=== PATIENT | female | born 1955 | race Caucasian/White ===

== ENCOUNTER 2017-02-18 16:18 | Emergency (ER) | payer MEDICARE, BC ==
[~2017-02-18 16:18] MED LIST: ATIVAN0.5 MG PO; BACTRIM DS TABL1 TAB PO; FOLIC ACID1 MG PO; KEFLEX PO; LATUDA20 MG PO; LITHIUM PO; LYRICA PO; NEURONTIN600 MG PO; PROZAC PO; RESTORIL15 MG PO; SEROQUEL XR150 MG PO; VICODIN PO; ZONEGRAN100 MG PO; [UNRECOGNIZED DRUG - OTHER]
== END 2017-02-18 16:57 | disposition home or self-care (01) ==
LOC: SED 16:18
DX: S51.801A Unspecified open wound of right forearm, initial encounter (principal); Z23 Encounter for immunization; F31.9 Bipolar disorder, unspecified; F41.9 Anxiety disorder, unspecified; W18.00XA Striking against unspecified object with subsequent fall, initial encounter; Y92.009 Unspecified place in unspecified non-institutional (private) residence as the place of occurrence of the external cause
CPT/HCPCS: 90471; 90715; 99283

== ENCOUNTER 2017-04-21 14:40 | Emergency (ER) | payer MEDICARE, BC, OTHER ==
--- NOTE | ~2017-04-21 | EKG ---
PATIENT: EFRAIN CURRAN UNIT #: [id number] Ventricular Rate: 92 BPM Atrial Rate: 92 BPM P-R Interval: 162 ms QRS Duration: 80 ms Q-T Interval: 384 ms QTC Calculation(Bezet): 474 ms P [place]: -20 degrees Calculated R [place]: 17 degrees Calculated T [place]: 18 degrees Diagnosis Line: Normal sinus rhythm Diagnosis Line: Low voltage QRS Diagnosis Line: Borderline ECG Diagnosis Line: No previous ECGs available Diagnosis Line: Confirmed by JUANITA TOUSSAINT MD ([id number]) on Diagnosis Line: 04/25/2017 3:22:12 PM INTERPRETING MD: NORBERT SMITH
--- NOTE | ~2017-04-21 | CT71 ---
[facility] A Service [facility] RADIOLOGY TEXT RESULTS PATIENT: EFRAIN CURRAN LOCATION: SED : 59 UNIT #: [id number] AGE: [address]: Eliecer Miller MD SEX: F ORDER DR: [id number] [place] [id number] E MR#: [id number] Acc #: [id number] NAME: EFRAIN CURRAN. : 1955 SEX: F STUDY DATE/TIME: 04/21/2017 15:58 UNIT: SED ROOM: STUDY DESCRIPTION: CT Head Wo Contrast Attending Physician: Eliecer Miller M.D. Referring Physician: Eliecer Miller M.D. Ordering Physician: Eliecer Miller M.D. Primary Care Physician: Andrez Mares M.D. MEDICAL IMAGING REPORT This report is preliminary unless electronic signature is present. EXAM CT head without contrast 04/21/2017 HISTORY 61-year-old female with tremors and weakness for several days. COMPARISON CT head 08/31/2015 TECHNIQUE Routine unenhanced axial images performed through the brain. This CT exam was performed with one or more of the following radiation dose reduction techniques: automatic control, adjustment of mA and/or kV according to patient size, and iterative reconstruction. FINDINGS Examination mildly limited by motion. No hemorrhage, acute infarction, mass lesion, or abnormal extraaxial fluid collection. No midline shift or focal mass effect. Ventricular system normal in size configuration. No acute bony abnormality. Visualized paranasal sinuses and mastoid air cells are clear. IMPRESSION No acute intracranial abnormality Dictated by... Koko Galvan M.D. THIS IS AN ELECTRONICALLY VERIFIED REPORT Koko Galvan M.D. at 04/25/2017 8:01 AM SENG/maggi [facility] A Service [facility] RADIOLOGY TEXT RESULTS PATIENT: EFRAIN CURRAN LOCATION: SED : 59 UNIT #: [id number] AGE: [address]: Eliecer Miller MD SEX: F ORDER DR: TD: 04/21/2017 22:07 JOB #: [id number] MEDICAL IMAGING REPORT Page 1 of 1
[2017-04-21 15:52] LABS: BASOPHIL# 0.1 X10e3 (0-0.3); BASOPHIL% 0.8 % (0-2.5); EOSINOPHIL# 0.1 X10e3 (0-0.7); EOSINOPHIL% 1.3 % (0.0-7.0); HEMATOCRIT 35.7 % (35.0-45.0); LYMPHOCYTE# 2.1 X10e3 (1.0-3.5); MEAN CELL VOLUME 91.2 FL (83-96); MEAN CORPUSCULAR HEMOGLOBIN 30.7 PG (28-34); MEAN CORPUSCULAR HGB CONC 33.6 g/dL (30-36); MEAN PLATELET VOLUME 7.7 FL (6.5-11.5); MONOCYTE# 0.9 X10e3 (0-1.0); MONOCYTE% 7.6 % (3.0-12.0); NEUTROPHIL# 8.3 X10e3 (1.5-7.1); NEUTROPHIL% 72.3 % (40-75); PLATELET COUNT 296 X10e3 (140-420); RED BLOOD COUNT 3.92 X10e (3.90-5.30); RED CELL DISTRIBUTION WIDTH 15.1 % (11.0-15.5); WHITE BLOOD COUNT 11.4 X10e3 (4.0-10.5)
[2017-04-21 15:53] LABS: DIFF IND NO
[2017-04-21 16:07] LABS: POC - CKMB 1.1 ng/mL (0.0-7.9); POC - TROPONIN <0.05 ng/mL (<=0.05)
[2017-04-21 16:08] LABS: CALCIUM SERUM 8.8 mg/dL (8.4-10.2); CREATININE SERUM 1.3 mg/dL (0.6-1.4); GLOM FILT RATE Estimated 44.9 mL/min (>60); POTASSIUM 3.9 mmol/L (3.5-5.1)
[2017-04-21 17:16] LABS: URINE SOURCE CLEAN CATCH
[2017-04-21 17:18] LABS: URINE APPEARANCE CLEAR; URINE BILIRUBIN NEG (NEG); URINE BLOOD 2+ (NEG); URINE COLOR YELLOW; URINE GLUCOSE NEG (NORM); URINE KETONE NEG (NEG); URINE LEUKOCYTE ESTERASE NEG (NEG); URINE NITRATE NEG (NEG); URINE PROTEIN NEG (NEG); URINE SPECIFIC GRAVITY <=1.005 (1.003-1.035); URINE UROBILINOGEN 0.2 MG/DL (NORM)
[2017-04-21 17:20] LABS: MICRO INDICATED? YES
[2017-04-21 17:24] LABS: CULTURE INDICATED? YES; URINE BACTERIA 1+ (NEG); URINE GRANULAR CAST 0-2 /[HPF]; URINE HYALINE CAST 0-2 /[HPF]; URINE SQUAMOUS EPITHELIAL CELL FEW /[HPF]
== END 2017-04-21 17:47 | disposition home or self-care (01) ==
LOC: SED 14:40
PROVIDERS: Emergency Medicine
DX: R20.2 Paresthesia of skin (principal); R42 Dizziness and giddiness; F41.9 Anxiety disorder, unspecified; F31.9 Bipolar disorder, unspecified; Z90.49 Acquired absence of other specified parts of digestive tract; Z90.710 Acquired absence of both cervix and uterus; Z79.899 Other long term (current) drug therapy
CPT/HCPCS: 36415; 70450; 80048; 81003; 82553; 84484; 85025; 87086; 93005; 99284

== ENCOUNTER 2017-05-12 09:45 | Emergency (ER) | payer MEDICARE, BC, OTHER ==
--- NOTE | ~2017-05-12 | CR253 ---
[facility]. [facility] A Service of [facility] & [facility] RADIOLOGY TEXT RESULTS PATIENT: EFRAIN CURRAN LOCATION: SED : 59 UNIT #: [id number] AGE: [address]: Jason Burgos MD SEX: F ORDER DR: [id number] [place] [id number] E MR#: [id number] Acc #: [id number] NAME: EFRAIN CURRAN. : 1955 SEX: F STUDY DATE/TIME: 05/12/2017 10:31 UNIT: SED ROOM: STUDY DESCRIPTION: CR Tibia and Fibula 2 Views Rt Attending Physician: Jason Burgos M.D. Ordering Physician: Jason Burgos M.D. Primary Care Physician: Andrez Mares M.D. MEDICAL IMAGING REPORT This report is preliminary unless electronic signature is present. EXAM Right tibia and fibula 05/12/17 1031 hours. HISTORY Patient slipped and fell getting out of shower this morning. Lower leg pain. FINDINGS AP and lateral views of the tibia and fibula were performed. No acute fracture is demonstrated. There is soft tissue swelling over the distal fibula with oblique fracture of the distal fibula demonstrated on today's ankle film but not readily seen on these images. IMPRESSION Lateral soft tissue swelling of the distal fibula. The patient does have an acute fracture of the distal fibula better seen on the ankle film today. Tibia is intact. Dictated by... Adrianne Major M.D. THIS IS AN ELECTRONICALLY VERIFIED REPORT Adrianne Major M.D. at 05/12/2017 4:01 PM JI/otilia TD: 05/12/2017 12:48 JOB #: [id number] MEDICAL IMAGING REPORT Page 1 of 1
--- NOTE | ~2017-05-12 | CR151 ---
[facility]. [facility] A Service of [facility] & [facility] RADIOLOGY TEXT RESULTS PATIENT: EFRAIN CURRAN LOCATION: SED : 59 UNIT #: [id number] AGE: [address]: Jason Burgos MD SEX: F ORDER DR: [id number] [place] [id number] E MR#: [id number] Acc #: [id number] NAME: EFRAIN CURRAN : 1955 SEX: F STUDY DATE/TIME: 05/12/2017 10:31 UNIT: SED ROOM: STUDY DESCRIPTION: CR Hip Min 2 Views Rt Attending Physician: Jason Burgos M.D. Ordering Physician: Jason Burgos M.D. Primary Care Physician: Andrez Mares M.D. MEDICAL IMAGING REPORT This report is preliminary unless electronic signature is present. EXAM Right hip 3 views 05/12/17 1031 hours. HISTORY Patient slipped and fell while getting out of the shower this morning. Hip pain and leg pain. COMPARISON 03/20/14 FINDINGS AP pelvis, AP and frog lateral views of the right hip demonstrate normal bone density. There is no pelvic or hip fracture seen. IMPRESSION No pelvic or hip fracture. Dictated by... Adrianne Major M.D. THIS IS AN ELECTRONICALLY VERIFIED REPORT Adrianne Major M.D. at 05/12/2017 4:01 PM JI/otilia TD: 05/12/2017 12:49 JOB #: [id number] MEDICAL IMAGING REPORT Page 1 of 1
--- NOTE | ~2017-05-12 | CR107 ---
[facility] A Service of [facility] & [facility] & [facility] RADIOLOGY TEXT RESULTS PATIENT: EFRAIN CURRAN LOCATION: SED : 59 UNIT #: [id number] AGE: [address]: Jason Burgos MD SEX: F ORDER DR: [id number] [place] [id number] E MR#: [id number] Acc #: [id number] NAME: EFRAIN CURRAN. : 1955 SEX: F STUDY DATE/TIME: 05/12/2017 10:31 UNIT: SED ROOM: STUDY DESCRIPTION: CR Femur 2 Views Rt Attending Physician: Jason Burgos M.D. Ordering Physician: Jason Burgos M.D. Primary Care Physician: Andrez Mares M.D. MEDICAL IMAGING REPORT This report is preliminary unless electronic signature is present. EXAM Right femur 2 views 05/12/17 1031 hours. HISTORY Patient slipped and fell while getting out of the shower this morning. Right leg pain. COMPARISON None. FINDINGS AP and lateral views of the femur demonstrate no fracture. IMPRESSION Negative right femur. Dictated by... Adrianne Major M.D. THIS IS AN ELECTRONICALLY VERIFIED REPORT Adrianne Major M.D. at 05/12/2017 4:01 PM JI/otilia TD: 05/12/2017 12:43 JOB #: [id number] MEDICAL IMAGING REPORT Page 1 of 1
--- NOTE | ~2017-05-12 | CR127 ---
[facility] A Service of [facility] & [facility] RADIOLOGY TEXT RESULTS PATIENT: EFRAIN CURRAN LOCATION: SED : 59 UNIT #: [id number] AGE: [address]: Jason Burgos MD SEX: F ORDER DR: [id number] [place] [id number] E MR#: [id number] Acc #: [id number] NAME: EFRAIN CURRAN. : 1955 SEX: F STUDY DATE/TIME: 05/12/2017 10:31 UNIT: SED ROOM: STUDY DESCRIPTION: CR Foot Complete Min 3 View Rt Attending Physician: Jason Burgos M.D. Ordering Physician: Jason Burgos M.D. Primary Care Physician: Andrez Mares M.D. MEDICAL IMAGING REPORT This report is preliminary unless electronic signature is present. EXAM Right foot 3 views 05/12/17 1031 hours. HISTORY Patient slipped and fell getting out of shower today. Right foot and ankle pain. COMPARISON None. FINDINGS AP, lateral and oblique views demonstrate no soft tissue swelling. The bone density is normal. There is no fracture or dislocation. There is a moderate sized plantar calcaneal spur. IMPRESSION Negative right foot. Dictated by... Adrianne Major M.D. THIS IS AN ELECTRONICALLY VERIFIED REPORT Adrianne Major M.D. at 05/12/2017 4:01 PM JI/otilia TD: 05/12/2017 12:45 JOB #: [id number] MEDICAL IMAGING REPORT Page 1 of 1
--- NOTE | ~2017-05-12 | CR21 ---
[facility] A Service of [facility] & [facility] RADIOLOGY TEXT RESULTS PATIENT: EFRAIN CURRAN LOCATION: SED : 59 UNIT #: [id number] AGE: [address]: Jason Burgos MD SEX: F ORDER DR: [id number] [place] [id number] E MR#: [id number] Acc #: [id number] NAME: EFRAIN CURRAN : 1955 SEX: F STUDY DATE/TIME: 05/12/2017 UNIT: SED ROOM: STUDY DESCRIPTION: CR Ankle Min 3 Views Rt Attending Physician: Jason Burgos M.D. Ordering Physician: Jason Burgos M.D. Primary Care Physician: Andrez Mares M.D. MEDICAL IMAGING REPORT This report is preliminary unless electronic signature is present. EXAM Right ankle 3 views 05/12/2017 1031 hours HISTORY Patient slipped and fell, coming out of the shower this morning. Ankle pain. COMPARISON None FINDINGS AP, lateral and oblique views demonstrate lateral greater than medial soft tissue swelling. There is an acute, oblique, nondisplaced fracture of the distal fibula which extends to the level of the tibiotalar articulation. There is no widening of the ankle mortise, but this could be an unstable fracture, given the position of the fracture. There is a small ossicle adjacent to the distal tip of the medial malleolus. There is no definite medial malleolar fracture. IMPRESSION There is an oblique nondisplaced fracture of the distal fibula extending inferiorly to the level of the tibiotalar articulation. There is no displacement or angulation. The ankle mortise appears symmetric; however, this could be an unstable fracture based on position of the fracture. There is overlying the lateral soft tissue swelling. STAT * RESULT Dictated by... Adrianne Major M.D. [facility] A Service of [facility] & [facility] RADIOLOGY TEXT RESULTS PATIENT: EFRAIN CURRAN LOCATION: SED : 59 UNIT #: [id number] AGE: [address]: Jason Burgos MD SEX: F ORDER DR: THIS IS AN ELECTRONICALLY VERIFIED REPORT Adrianne Major M.D. at 05/12/2017 12:14 PM Amena TD: 05/12/2017 11:14 JOB #: [id number] MEDICAL IMAGING REPORT Page 1 of 1
== END 2017-05-12 12:07 | disposition home or self-care (01) ==
LOC: SED 09:45
DX: S82.831A Other fracture of upper and lower end of right fibula, initial encounter for closed fracture (principal); F31.9 Bipolar disorder, unspecified; W01.0XXA Fall on same level from slipping, tripping and stumbling without subsequent striking against object, initial encounter; Y92.009 Unspecified place in unspecified non-institutional (private) residence as the place of occurrence of the external cause; Z79.899 Other long term (current) drug therapy
CPT/HCPCS: 29515; 73502; 73552; 73590; 73610; 73630; 99283

== ENCOUNTER → 2017-06-05 | Outpatient (CLI) | payer MEDICARE, BC ==
--- NOTE | ~2017-06-05 | CT57 ---
[facility] A Service [facility] RADIOLOGY TEXT RESULTS PATIENT: EFRAIN CURRAN LOCATION: [facility] : 59 UNIT #: [id number] AGE: [address]: Luba Bryson SEX: F ORDER DR: [id number] [facility] [address] [place], [place] [address] [id number] O MR#: [id number] Acc #: [id number] NAME: EFRAIN CURRAN : 1955 SEX: F STUDY DATE/TIME: 06/05/2017 14:01 UNIT: CCA ROOM: STUDY DESCRIPTION: CT Chest Wo Cont Attending Physician: Luba Bryson A.P.R.N. Referring Physician: Luba Bryson A.P.R.N. Ordering Physician: Luba Bryson A.P.R.N. Primary Care Physician: Andrez Mares M.D. MEDICAL IMAGING REPORT This report is preliminary unless electronic signature is present EXAM CT scan of the chest without contrast. INDICATION Shortness of breath for [address] scan of the chest was performed without contrast. Coronal and sagittal reformatted images were obtained. This CT exam was performed with one or more of the following radiation dose reduction techniques: automatic exposure control, adjustment of mA and/or kV according to patient size, and iterative reconstruction. COMPARISON 01/05/2006 FINDINGS Calcified granuloma in the right upper lobe. Calcified granuloma the right lower lobe. Minimal subpleural scarring or atelectasis in the left lower lobe. No airspace consolidation. No suspicious pulmonary nodule. No suspicious lymphadenopathy. Calcified mediastinal or hilar lymph nodes. No pleural effusion. Limited imaging in the upper abdomen demonstrates a Lap-Band. Cholecystectomy. The bone windows are unremarkable. IMPRESSION 1. No airspace consolidation or suspicious pulmonary nodule. 2. Calcified granulomas in the right lung. 3. Minimal subpleural left lower lobe scarring or atelectasis. [facility] A Service [facility] RADIOLOGY TEXT RESULTS PATIENT: EFRAIN CURRAN LOCATION: [facility] : 59 UNIT #: [id number] AGE: [address]: Luba Bryson SEX: F ORDER DR: Dictated by... Alec Martinez M.D. THIS IS AN ELECTRONICALLY VERIFIED REPORT Alec Martinez M.D. at 06/07/2017 7:41 AM BRANDY/carlos TD: 06/06/2017 15:02 JOB #: [id number] MEDICAL IMAGING REPORT Page 1 of 1 COPY
== END | disposition home or self-care (01) ==
LOC: CCAT 13:02
DX: R06.02 Shortness of breath (principal); J84.10 Pulmonary fibrosis, unspecified; R93.8 Abnormal findings on diagnostic imaging of other specified body structures
CPT/HCPCS: 71250